=== PATIENT | male | born 1975 | race Caucasian/White ===

== ENCOUNTER 2016-10-16 14:33 | Outpatient (CLI) ==
[2013-12-10 16:22] VITALS: BMI 29.5
[2016-10-16 14:44] LABS: FLU INTERNAL QC INTERNAL QC VALID; RAPID FLU A NEGATIVE (NEGATIVE); RAPID FLU B NEGATIVE (NEGATIVE)
--- NOTE | 2016-10-16 15:58 | DI ---
EXAM: PA and lateral views of the chest HISTORY: Acute sinusitis COMPARISON: Chest x-ray 02/22/2013 FINDINGS: The cardiomediastinal silhouette is normal. There is no pneumothorax or pleural effusion . There is no consolidation, nodule or mass. The osseous structures are unremarkable. IMPRESSION: No acute cardiopulmonary process
== END 2016-10-16 14:34 | disposition home or self-care (01) ==
LOC: RAD 14:33
PROVIDERS: ATTEND Nurse Practitioner Family
DX: J01.90 Acute sinusitis, unspecified (principal); R05 Cough
CPT/HCPCS: 87651; 87804; 87880

== ENCOUNTER 2016-10-16 15:13 | Outpatient (CLI) ==
[2013-12-10 16:22] VITALS: BMI 29.5
== END 2016-10-16 15:14 | disposition home or self-care (01) ==
LOC: LAB 15:13
PROVIDERS: ATTEND Nurse Practitioner Family
DX: J01.90 Acute sinusitis, unspecified (principal); R05 Cough

== ENCOUNTER 2018-08-10 06:35 | Emergency (ER) ==
[2018-08-10 06:35] VITALS: BMI 29.5
[2018-08-10 06:44] VITALS: BP 122/75; TEMP 97.6
[2018-08-10] MEDS ORDERED: TORADOL IM STA (07:08)
--- NOTE | 2018-08-10 07:31 | ED.PDOC ---
General ED Provider: Dr. TYRONE MILLER MD Chief Complaint: Back Pain Stated Complaint: back hurt 1 week ago now also radiates into my scrotum Time Seen by Physician: 07:15 Mode of Arrival: Walk-In Information Source: Patient Exam Limitations: No limitations Primary Care Provider: GROVER GONZALEZ Nursing and Triage Documentation Reviewed and Agree: Yes Does patient meet sepsis criteria?: No If yes, has appropriate treatment been initiated?: Yes System Inflammatory Response Syndrome: Not Applicable Sepsis Protocol: For patient's 13 years and over: Temp is 96.8 and below OR 101 and greater Pulse >90 BPM Resp >20/minute Acutely Altered Mental Status Are patient's symptoms suggestive of a new infection, such as: -Pneumonia -Skin, Soft Tissue -Endocarditis -UTI -Bone, Joint Infection -Implantable Device -Acute Abdominal Infection -Wound Infection -Meningitis -Blood Stream Catheter Infection -Unknown Musculoskeletal Complaint Exam - Back Pain Complaint/Exam Mechanism of Injury: 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) Symptoms Are: Still present Timing: Intermittent Episodes Lasting: Minutes Initial Severity: Mild Current Severity: Moderate Location: Reports: Discrete Character: Reports: Aching Aggravating: Reports: Movements, Bending Alleviating: Reports: Rest Associated Signs and Symptoms: Denies: Swelling, Redness, Bruising, Fever, Weakness, Numbness, Tingling, Abdominal pain, Flank pain, Bladder incontinence, Bowel incontinence, Weight loss, Pain with weight bearing TAD Risk Factors: Reports: None AAA Risk Factors: Reports: None Cauda Equina Risk Factors: Reports: None Epidural Abcess Risk Factors: Reports: None Related Surgical History: Reports: None Focal Tenderness: No Paraspinal Muscle Tenderness: Yes Scoliosis: No Lordosis: No Kyphosis: No SLR Test: Right Negative, Left Negative Focal Sensory Loss: Present: None Gait: Present: Normal Differential Diagnoses: Strain, Sprain Review of Systems - Review Of Systems Constitutional: Reports: No symptoms Eyes: Reports: No symptoms Ears, Nose, Mouth, Throat: Reports: No symptoms Respiratory: Reports: No symptoms Cardiac: Reports: No symptoms GI: Reports: No symptoms : Reports: No symptoms Musculoskeletal: Reports: Back pain Skin: Reports: No symptoms Neurological: Reports: No symptoms Endocrine: Reports: No symptoms Hematologic/Lymphatic: Reports: No symptoms All Other Systems: Reviewed and Negative Past Medical History - Past Medical History Previously Healthy: Yes Endocrine: Reports: None Cardiovascular: Reports: None Respiratory: Reports: None Hematological: Reports: None Gastrointestinal: Reports: None Genitourinary: Reports: None Neuro/Psych: Reports: None Musculoskeletal: Reports: None Cancer: Reports: None - Surgical History General Surgical History: Reports: None - Family History Family History: Reports: None - Social History Smoking Status: Current every day smoker, Heavy tobacco smoker Hx Substance Use: No Alcohol Screening: None - Immunizations Tetanus Shot up to Date: Yes Physical Exam - Physical Exam Appearance: Well-appearing Ill-appearing: None Pain Distress: Mild Eyes: NICOLASA, EOMI, Conjunctiva clear ENT: Ears normal, Nose normal, Oropharynx normal Respiratory: Airway patent, Breath sounds clear, Breath sounds equal, Respirations nonlabored Cardiovascular: RRR, Pulses normal, No rub, No murmur GI/: Soft, Nontender, No masses, Bowel sounds normal, No Organomegaly Musculoskeletal: Normal strength, Limited ROM Skin: Warm, Dry, Normal color Neurological: Sensation intact, Motor intact, Reflexes intact, Cranial nerves intact, Alert, Oriented Psychiatric: Affect appropriate, Mood appropriate Critical Care Note - Critical Care Note Total Time (mins): 0 Course - Course Orders, Labs, Meds: Lab Review 08/10/18 07:00 Urine Color Yellow Urine Clarity Clear Urine pH 5.5 Ur Specific [place] >=1.030 Urine Protein Negative Urine Glucose (UA) Negative Urine Ketones Negative Urine Blood Negative Urine Nitrite Negative Urine Bilirubin 1+ Urine Urobilinogen 0.2 Ur Leukocyte Esterase Negative Orders Category Date Time Status UA [URINALYSIS C & S IF INDICATED] Stat LAB 08/10/18 07:00 Completed Ketorolac Tromethamine [Toradol] MEDS 08/10/18 07:08 Discontinued 60 mg IM ONCE STA LUMBAR SPINE, 2 OR 3 VIEWS Stat RADS 08/10/18 07:12 Completed Medications Discontinued Medications Generic Name Dose Route Start Last Admin Trade Name Freq PRN Reason Stop Dose Admin Ketorolac Tromethamine 60 mg 08/10/18 07:08 08/10/18 07:13 Toradol IM 08/10/18 07:09 60 mg ONCE STA Administration Vital Signs: Temp Pulse Resp BP Pulse Ox 08/10/18 06:36 97.6 F 78 18 122/75 96 Departure - Departure Time of Disposition: 08:20 Disposition: HOME SELF-CARE Discharge Problem: Back pain Qualifiers: Chronicity: acute Back pain laterality: right Condition: Good Pt referred to PMD for follow-up: Yes IPMP verified?: No Prescriptions: Ketorolac Tromethamine [Toradol] 10 mg PO BID 5 Days #10 tablet NS Allergies/Adverse Reactions: Allergies Penicillins Adverse Reaction (Verified 08/10/18 06:45) Swelling Home Medications: Ambulatory Orders Ketorolac Tromethamine [Toradol] 10 mg PO BID 5 Days #10 tablet NS 08/10/18 Transfer Form Completed: No
--- NOTE | 2018-08-10 07:44 | DI ---
EXAM: Lumbar spine three views HISTORY: Pain COMPARISON: None TECHNIQUE: Three views lumbar spine were performed. FINDINGS: Sacroiliac joints intact. Sacral arcuate intact. Vertebral bodies normal height. No fra cture. No subluxation. Intervertebral disc spaces maintained. Multilevel marginal osteophyte forma tion. Suggestion of facet arthrosis in the lower lumbar spine. IMPRESSION: Chronic discogenic degenerative disease and facet arthrosis.
== END 2018-08-10 08:31 | disposition home or self-care (01) ==
LOC: ED 06:35
DX: M54.9 Dorsalgia, unspecified (principal); F17.210 Nicotine dependence, cigarettes, uncomplicated
CPT/HCPCS: 81001; 96372; 99283

== ENCOUNTER 2018-12-21 14:03 | Outpatient (CLI) ==
--- NOTE | 2018-12-21 14:56 | DI ---
EXAM: Three views of the right shoulder. History: Right shoulder pain. Findings: No acute fracture or dislocation. No abnormal calcifications or radiopaque foreign bodies . Joint spaces are preserved. Impression: Unremarkable exam
== END 2018-12-21 14:04 | disposition home or self-care (01) ==
LOC: RAD 14:03
PROVIDERS: ATTEND Nurse Practitioner Family
DX: M25.511 Pain in right shoulder (principal)

== ENCOUNTER 2018-12-30 21:01 | Emergency (ER) ==
[2018-12-30 21:10] VITALS: BP 126/88; TEMP 97.3; BMI 29.2
--- NOTE | 2018-12-30 21:18 | ED.PDOC ---
General ED Provider: Dr. PAVEL DONNELLY Chief Complaint: Shoulder Pain/Injury Stated Complaint: strained right shoulder 1 y ago.Now must have overused it as the pain returns.It is over the deltoid but focuses on merge insertion with biceps. Time Seen by Physician: 21:15 Mode of Arrival: Walk-In Information Source: Patient Exam Limitations: No limitations Primary Care Provider: GROVER GONZALEZ Nursing and Triage Documentation Reviewed and Agree: Yes Does patient meet sepsis criteria?: No System Inflammatory Response Syndrome: Not Applicable Sepsis Protocol: For patient's 13 years and over: Temp is 96.8 and below OR 101 and greater Pulse >90 BPM Resp >20/minute Acutely Altered Mental Status Are patient's symptoms suggestive of a new infection, such as: -Pneumonia -Skin, Soft Tissue -Endocarditis -UTI -Bone, Joint Infection -Implantable Device -Acute Abdominal Infection -Wound Infection -Meningitis -Blood Stream Catheter Infection -Unknown Musculoskeletal Complaint Exam - Shoulder Pain Complaint/Exam Mechanism of Injury: Reports: No known trauma Onset/Duration: todat apparently an old spot in r deltoid area started hurtying.Limited ro Symptoms Are: Still present Timing: Constant Initial Severity: Moderate Current Severity: Moderate Location: Reports: Diffuse Character: Reports: Aching Alleviating: Reports: Rest, Ice Aggravating: Reports: Movement, Lifting, Flexion, Extension Associated Signs and Symptoms: Reports: Weakness Related History: Reports: Similar episode, Occupational injury, Dominant hand right Non-Orthopedic Risk Factors: Reports: None DVT Risk Factors: Reports: None Septic Arthritis Risk Factors: Reports: None Related Surgical History: Reports: None Tenderness: Present: Rotator cuff muscles Limited Range of Motion: Present: Abduction, Flexion, Extension, Rotator cuff muscles, Rotator cuff insertion Differential Diagnoses: Rotator Cuff Injury, Sprain, Strain, Tendonitis, Bursitis Review of Systems - Review Of Systems Constitutional: Reports: No symptoms Eyes: Reports: No symptoms Ears, Nose, Mouth, Throat: Reports: No symptoms Respiratory: Reports: No symptoms Cardiac: Reports: No symptoms GI: Reports: No symptoms : Reports: No symptoms Musculoskeletal: Reports: Muscle pain, Muscle stiffness, Other Skin: Reports: No symptoms Neurological: Reports: No symptoms Endocrine: Reports: No symptoms Hematologic/Lymphatic: Reports: No symptoms All Other Systems: Reviewed and Negative Past Medical History - Past Medical History Previously Healthy: Yes Endocrine: Reports: None Cardiovascular: Reports: None Respiratory: Reports: None Hematological: Reports: None Gastrointestinal: Reports: None Genitourinary: Reports: None Neuro/Psych: Reports: None Musculoskeletal: Reports: None Cancer: Reports: None - Surgical History General Surgical History: Reports: None - Family History Family History: Reports: None - Social History Smoking Status: Current every day smoker, Heavy tobacco smoker Hx Substance Use: No Alcohol Screening: None - Immunizations Tetanus Shot up to Date: Yes Physical Exam - Physical Exam Appearance: Well-appearing Ill-appearing: None Pain Distress: Mild Eyes: NICOLASA ENT: Ears normal, Nose normal Neck: Supple Respiratory: Airway patent Cardiovascular: RRR GI/: Soft Musculoskeletal: Limited ROM, Limited strength Skin: Warm, Dry Neurological: Sensation intact Interpretation - Radiology Interpretation Radiology Interpretation By: Radiologist Radiology Results: Negative Exam Interpreted: CT Scan Xray Comments: CT of r shoulder and x ray views of hunerus all neg/ Critical Care Note - Critical Care Note Total Time (mins): 0 Course - Course Orders, Labs, Meds: Orders Category Date Time Status NPO REMINDER: IMAGING ONCE CARE 12/30/18 21:25 Active Ketorolac Tromethamine [Toradol] MEDS 12/30/18 21:26 Discontinued 30 mg IM ONCE STA CT HUMERUS RIGHT W/O CONTRAST Stat RADS 12/30/18 21:[address] SHOULDER RIGHT W/O CONTRAST Stat RADS 12/30/18 21:23 Completed Medications Discontinued Medications Generic Name Dose Route Start Last Admin Trade Name Freq PRN Reason Stop Dose Admin Ketorolac Tromethamine 30 mg 12/30/18 21:26 12/30/18 21:36 Toradol IM 12/30/18 21:27 30 mg ONCE STA Administration Vital Signs: Temp Pulse Resp BP Pulse Ox 12/30/18 21:04 97.3 F L 93 H 20 126/88 94 L Departure - Departure Time of Disposition: 22:56 Disposition: HOME SELF-CARE Discharge Problem: Chronic right shoulder pain Instructions: Shoulder Pain (ED) Condition: Good Pt referred to PMD for follow-up: Yes (follow with ortho) IPMP verified?: No Allergies/Adverse Reactions: Allergies Penicillins Adverse Reaction (Verified 08/10/18 06:45) Swelling Home Medications: Ambulatory Orders 1 [No Reported Medications] 12/30/18 Disposition Discussed With: Patient
[2018-12-30] MEDS ORDERED: TORADOL IM STA (21:26)
--- NOTE | 2018-12-30 22:32 | CT ---
EXAM: CT of the right shoulder without contrast. HISTORY: Right shoulder pain. FINDINGS: The bones are intact with no evidence of fracture. The joint spaces are maintained. No so ft tissue abnormality. Impression: Negative right shoulder.
--- NOTE | 2018-12-30 22:36 | CT ---
EXAM: CT of the right humerus without contrast. HISTORY: Right shoulder pain and decreased range of motion. PROCEDURE: Contiguous axial CT images of the right shoulder without contrast with coronal and sagitt al reformats. FINDINGS: The right humerus is intact with no evidence of fracture. The joint spaces are maintained . No soft tissue abnormality. Impression: Negative right humerus.
== END 2018-12-30 23:11 | disposition home or self-care (01) ==
LOC: ED 21:01
DX: M25.511 Pain in right shoulder (principal); G89.29 Other chronic pain; F17.210 Nicotine dependence, cigarettes, uncomplicated
CPT/HCPCS: 96372; 99282

== ENCOUNTER 2019-01-29 09:15 | Outpatient (CLI) ==
--- NOTE | 2019-01-29 10:36 | US ---
EXAM: Ultrasound right upper extremity limited. HISTORY: Localized swelling or mass or lump of the upper arm. FINDINGS: Weathers-scale ultrasound and color Doppler was performed in the region of interest described as the upper arm, area of concern. Within this region, there was a oval shaped region measuring 5.6 x 1.7 x 2.2 cm with internal mass-li ke echogenic foci having internal blood flow in a setting of either heterogeneous or anechoic spaces. Etiology of this finding is uncertain although if there has been injury considerations would be giv en to hematoma with possible muscular or other soft tissue/tendinous injury. Abscess or hematoma cou ld appear similar. Less likely neoplasm. IMPRESSION: 1. Indeterminate finding in the area of interest as described which would be best evaluated with MRI .
--- NOTE | 2019-01-29 10:55 | DI ---
EXAM: Right humerus two-view HISTORY: Localized swelling, mass and lump COMPARISON: CT 12/30/2018 FINDINGS: The bones are normal. Alignment is normal. No focal soft tissue abnormality. IMPERSSION: Normal examination.
== END 2019-01-29 09:16 | disposition home or self-care (01) ==
LOC: RAD 09:15
PROVIDERS: ATTEND Nurse Practitioner Family
DX: R22.31 Localized swelling, mass and lump, right upper limb (principal)
CPT/HCPCS: 76882